=== PATIENT | female | born 1995 | race Caucasian/White ===

== ENCOUNTER 2018-10-18 23:06 | Emergency (ER) | payer OTHER ==
[2018-10-19] MEDS: ONDANSETRON (ODT) 4 MG TAB ODT (00:29)
[2018-10-19] MEDS: IBUPROFEN 200 MG TAB PO (00:29)
[2018-10-19 00:32] LABS: URINE BLOOD (Dip) POC 3+ (NEGATIVE); URINE GLUCOSE (Dip) POC Negative (NEGATIVE); URINE KETONES (Dip) POC Negative (NEGATIVE); URINE LEUKOCYTE EST (Dip) POC Negative (NEGATIVE); URINE NITRITE (Dip) POC Negative (NEGATIVE); URINE TOTAL PROTEIN POC 2+ (NEGATIVE)
[2018-10-19 00:32] LABS: URINE PH (Dip) POC 8.5 (5.0-8.5)
== END 2018-10-19 01:36 | disposition left against medical advice (07) ==
LOC: FTE 23:06
DX: N94.6 Dysmenorrhea, unspecified (principal); K52.9 Noninfective gastroenteritis and colitis, unspecified
CPT/HCPCS: 81003; 81025; 99283